=== PATIENT | female | born 2000 | race Caucasian/White ===

== ENCOUNTER 2021-06-12 12:05 | Emergency (ER) | payer OTHER ==
[~2021-06-12] VITALS: Ht 175.3 cm; Wt 59.5 kg
[2021-06-12] MEDS ORDERED: SPIR100T4 PO (12:42)
[2021-06-12] MEDS ORDERED: FINA5TAB4 PO (12:42)
[2021-06-12] MEDS ORDERED: ESTR2TAB PO (12:42)
[2021-06-12 12:44] VITALS: BP 123/78
--- NOTE | 2021-06-12 12:46 | NUR ---
PT REPORTS INTERMITTENT CHEST PAIN FOR ABOUT A MONTH AND PALPITATIONS. SR 60s-70s ON MONITOR. PT DENIES MEDICAL HX; CURRENTLY TAKES 3 MEDS FOR GENDER TRANSITION.
--- NOTE | 2021-06-12 12:49 | NUR ---
ER PA WAS IN TO SEE PT.
[2021-06-12 13:17] LABS: BASOPHILS % (AUTO) 1 % (0-1); EOSINOPHILS % (AUTO) 3 % (1-7); LYMPHOCYTES % (AUTO) 30 % (22-44); MEAN CORPUSCULAR HEMOGLOBIN 29.6 pg (27.0-34.8); MEAN CORPUSCULAR HGB CONC 33.4 g/dL (32.4-35.8); MEAN PLATELET VOLUME 8.3 fL (7.4-10.4); MONOCYTES % (AUTO) 6 % (2-9); NEUTROPHILS % (AUTO) 61 % (42-75); PLATELET COUNT 295 x10^3/uL (130-400); RED BLOOD COUNT 4.19 x10^6/uL (3.82-5.3); RED CELL DISTRIBUTION WIDTH 12.8 % (9.6-15.2)
[2021-06-12 13:22] LABS: ALANINE AMINOTRANSFERASE 16 U/L (12-78); ALBUMIN 3.5 g/dL (3.4-5.0); ANION GAP 6 mmol/L (5-15); CALCIUM 8.3 mg/dL (8.5-10.1); CHLORIDE 105 mmol/L (98-107); CREATININE 0.65 mg/dL (0.55-1.02)
[2021-06-12 13:32] LABS: ALKALINE PHOSPHATASE 39 U/L (45-117); BILIRUBIN,TOTAL 0.3 mg/dL (0.2-1.0); TOTAL PROTEIN 6.8 g/dL (6.4-8.2); TROPONIN I < 0.015 ng/mL (0.000-0.045)
[2021-06-12 13:48] LABS: FREE T4 (FREE THYROXINE) 1.09 ng/dL (0.76-1.46)
--- NOTE | 2021-06-12 14:32 | NUR ---
D/C INSTRUCTIONS & F/U APPT RV'WD WITH PT, SHE VERBALIZES UNDERSTANDING. INSTRUCTED TO RETURN TO ED FOR WORSENING SYMPTOMS. AMBULATED OUT OF ED WITHOUT DIFFICULTY.
== END 2021-06-12 14:33 | disposition home or self-care (01) ==
LOC: ED 14:30
DX: R00.2 Palpitations (principal); R07.89 Other chest pain
CPT/HCPCS: 36415; 71045; 80053; 83690; 84439; 84443; 84484; 85025; 93005; 99285